=== PATIENT | male | born 1980 | race Caucasian/White ===

== ENCOUNTER 2023-09-28 09:34 | Inpatient (IN) | payer OTHER ==
[~2023-09-28] VITALS: Ht 182.9 cm; Wt 151.0 kg
[2023-09-28 10:44] LABS: BASOPHILS ABSOLUTE AUTO 0.05 K/mm3 (0.00-0.23); BASOPHILS PERCENT AUTO 1 % (0-2); EOSINOPHILS PERCENT AUTO 2 % (0-6); Hematocrit 44.3 % (37.0-53.0); IMMATURE GRAN ABSOLUTE AUTO 0.03 K/mm3 (0.00-0.10); IMMATURE GRAN PERCENT AUTO 0 % (0-1); LYMPHOCYTES ABSOLUTE AUTO 1.69 K/mm3 (0.84-5.20); LYMPHOCYTES PERCENT AUTO 19 % (21-46); MONOCYTES ABSOLUTE AUTO 0.57 K/mm3 (0.16-1.47); MONOCYTES PERCENT AUTO 6 % (4-13); Mean Corpuscular HGB Conc 33.9 g/dL (31.5-36.5); Mean Corpuscular Volume 95 fL (80-100); Mean Platelet Volume 8.9 fL (9.1-12.4); NEUTROPHILS ABSOLUTE AUTO 6.31 K/mm3 (1.96-9.15); NEUTROPHILS PERCENT AUTO 71 % (41-73); Platelet Count 274 K/mm3 (150-400); RDW Coefficient Variation 12.7 % (11.7-14.2); RDW Standard Deviation 43.5 fL (35.1-46.3); Red Blood Cell Count 4.69 M/mm3 (4.30-5.90); White Blood Cell Count 8.85 K/mm3 (4.00-11.30)
[2023-09-28 11:13] LABS: Albumin, Blood 3.4 g/dL (3.4-5.0); Bilirubin, Total 0.5 mg/dL (0.1-1.0); Bun/Creatinine Ratio 14.6 (12.0-20.0); Calcium, Blood 8.2 mg/dL (8.5-10.1); Creatinine, Blood 0.62 mg/dL (0.60-1.20); Globulin, Blood 3.5 g/dL (2.2-4.0); Potassium, Blood 4.2 mmol/L (3.5-5.5); Total Protein, Blood 6.9 g/dL (6.4-8.2)
[2023-09-28 15:42] LABS: Hematocrit 40.6 % (37.0-53.0); Hemoglobin 13.7 g/dL (13.5-17.5)
[2023-09-28 16:38] VITALS: BP 155/106
--- NOTE | 2023-09-28 19:16 | NUR ---
SHIFT SUMMARY: PT ADMITTED TO ROOM 325, CAME UP BY WHEELCHAIR AND IS STEADY ON FEET, IND IN ROOM, PLEASANT AND COOPERATIVE. PT HAD EMILIE RED STOOL 200 CC AFTER ARRIVING. PT TOLERATING CLEAR LIQUID DIET. REPORTED DISCOMFORT TO ABD MID STOMACH BILAT QUADS. PT EDUCATED ON FALL PRECAUTIONS, WHAT TO EXPECT WITH PROCEDURE. PT VU.
[2023-09-28 19:31] VITALS: BP 157/93
--- NOTE | 2023-09-29 03:52 | NUR ---
SHIFT SUMMARY PATIENT IS ALERT AND ORIENTED. PATIENT HAS BEEN IND. PATIENT HAS BEEN HAVING SEVERAL BLOODY BOWEL MOVEMENTS THIS SHIFT. PATIENT HAS BEEN ADMITTED FOR SAME REASON. PATIENT H&H STABLE. PATIENT IS SCHEDULED FOR A COLONSCOPY LATER TODAY. PATIENT HAS BEEN NPO SINCE MIDNIGHT. PATIENT HAS NOT COMPLAINED OF PAIN, NAUSEA, SOB OR VOMITTING THIS SHIFT. VITAL SIGNS REVIEWED. BED IN LOCKED AND LOWEST POSITION. CALL LIGHT IN PLACE WILL MONITOR UNTIL SHIFT CHANGE.
[2023-09-29 04:07] VITALS: BP 139/76
[2023-09-29 04:24] LABS: BASOPHILS ABSOLUTE AUTO 0.07 K/mm3 (0.00-0.23); BASOPHILS PERCENT AUTO 1 % (0-2); EOSINOPHILS PERCENT AUTO 3 % (0-6); Hematocrit 34.4 % (37.0-53.0); Hemoglobin 11.6 g/dL (13.5-17.5); IMMATURE GRAN ABSOLUTE AUTO 0.07 K/mm3 (0.00-0.10); IMMATURE GRAN PERCENT AUTO 1 % (0-1); LYMPHOCYTES ABSOLUTE AUTO 2.48 K/mm3 (0.84-5.20); LYMPHOCYTES PERCENT AUTO 28 % (21-46); MONOCYTES ABSOLUTE AUTO 0.63 K/mm3 (0.16-1.47); MONOCYTES PERCENT AUTO 7 % (4-13); Mean Corpuscular HGB Conc 33.7 g/dL (31.5-36.5); Mean Corpuscular Volume 95 fL (80-100); Mean Platelet Volume 9.1 fL (9.1-12.4); NEUTROPHILS PERCENT AUTO 60 % (41-73); Platelet Count 292 K/mm3 (150-400); RDW Coefficient Variation 12.6 % (11.7-14.2); RDW Standard Deviation 43.8 fL (35.1-46.3); Red Blood Cell Count 3.63 M/mm3 (4.30-5.90); White Blood Cell Count 8.95 K/mm3 (4.00-11.30)
[2023-09-29 04:38] LABS: Prothrombin Time Results 10.5 Sec (9.7-11.5)
[2023-09-29 04:41] LABS: Albumin, Blood 2.9 g/dL (3.4-5.0); Bilirubin, Total 0.8 mg/dL (0.1-1.0); Bun/Creatinine Ratio 13.2 (12.0-20.0); Calcium, Blood 7.8 mg/dL (8.5-10.1); Creatinine, Blood 0.68 mg/dL (0.60-1.20); Potassium, Blood 3.9 mmol/L (3.5-5.5); Total Protein, Blood 5.9 g/dL (6.4-8.2)
[2023-09-29 08:02] VITALS: BP 138/75
[2023-09-29 12:22] LABS: Hematocrit 29.2 % (37.0-53.0)
[2023-09-29 15:05] VITALS: BP 131/77
--- NOTE | 2023-09-29 15:17 | NUR ---
PT FINISHED GOLYTELY AT 2 PM AND WAS MADE NPO. PT CONTINUES TO HAVE RED BLOODY STOOLS MIXED WITH SMALL PIECES OF STOOL.
--- NOTE | 2023-09-29 16:09 | NUR ---
SHIFT SUMMARY PATIENT DENIES PAIN AND SHORTNESS OF BREATH. PATIENT MEDICATED FOR NAUSEA X1. PATIENT IS IND IN THE ROOM. PATIENT AT BEDSIDE THROUGHOUT SHIFT. PATIENT HAS BEEN CLEAR LIQUIDS WHILE DRINKING BOWEL PREP. FINISHED PREP AT 1400. PATIENT NPO SINCE 1400. PLAN FOR COLONOSCOPY LATER THIS EVENING. PATIENT PLEASANT AND COOPERATIVE WITH CARE. PATIENT CALLS APPROPRIATELY.
--- NOTE | 2023-09-29 18:11 | NUR ---
UPDATE PATIENT TAKEN FOR PROCEDURE AT 1810. [facility]IENT IN [facility], [facility] SINCE 1400. PATIENT WENT WITH PATIENT. PATIENT ASKED THAT WE CALL HER WHEN PATIENT IS BACK IN ROOM FROM PROCEDURE.
[2023-09-29 18:25] VITALS: BP 169/98
--- NOTE | 2023-09-29 19:15 | NUR ---
09/29/231914 Love Kelley WITH DR. CASTELLANOS; SEE ANESTHESIA RECORDS.
--- NOTE | 2023-09-30 01:05 | NUR ---
REPORT RECEIVED, PT DOWN STAIRS HAVING COLONSCOPY DONE. 830 PT ARRIVED A/O VSS, OUT COME OF PROCEDURE IS PT POSSIBLE CANCER DIAGNOSIS, MD IN TO SPEAK WITH PT AND , NO C/O PAIN NO DISTRESS.
[2023-09-30 04:39] VITALS: BP 177/96
[2023-09-30 05:29] LABS: BASOPHILS ABSOLUTE AUTO 0.05 K/mm3 (0.00-0.23); BASOPHILS PERCENT AUTO 1 % (0-2); EOSINOPHILS ABSOLUTE AUTO 0.19 K/mm3 (0.00-0.68); EOSINOPHILS PERCENT AUTO 2 % (0-6); Hematocrit 22.9 % (37.0-53.0); Hemoglobin 7.7 g/dL (13.5-17.5); IMMATURE GRAN ABSOLUTE AUTO 0.07 K/mm3 (0.00-0.10); IMMATURE GRAN PERCENT AUTO 1 % (0-1); LYMPHOCYTES ABSOLUTE AUTO 1.71 K/mm3 (0.84-5.20); LYMPHOCYTES PERCENT AUTO 17 % (21-46); MONOCYTES PERCENT AUTO 7 % (4-13); Mean Corpuscular HGB 32.2 pg (26.0-34.0); Mean Corpuscular HGB Conc 33.6 g/dL (31.5-36.5); Mean Corpuscular Volume 96 fL (80-100); Mean Platelet Volume 9.3 fL (9.1-12.4); NEUTROPHILS ABSOLUTE AUTO 7.43 K/mm3 (1.96-9.15); NEUTROPHILS PERCENT AUTO 73 % (41-73); Platelet Count 226 K/mm3 (150-400); RDW Coefficient Variation 12.7 % (11.7-14.2); RDW Standard Deviation 44.2 fL (35.1-46.3); Red Blood Cell Count 2.39 M/mm3 (4.30-5.90); White Blood Cell Count 10.15 K/mm3 (4.00-11.30)
[2023-09-30 07:56] VITALS: BP 150/80
[2023-09-30 13:10] LABS: Hematocrit 25.3 % (37.0-53.0); Hemoglobin 8.4 g/dL (13.5-17.5)
--- NOTE | 2023-09-30 13:51 | NUR ---
PT A&OX4 WITH VSS. NO COMPLAINTS OF NAUSEA, DIZZINESS, SOB, CHEST PAIN, OR FEELING LIGHT HEADED. PT AND FAMILY REQUESTS COPY OF CT EXAM. PRINTED CT AND DELIVERED TO PT.
[2023-09-30 15:23] VITALS: BP 150/92
--- NOTE | 2023-09-30 17:43 | NUR ---
SHIFT SUMMARY PT A&OX4 AND ANSWERS QUESTIONS APPROPRIATELY. PT VSS. PT INDEPENDENT IN ROOM. PT USES CPAP AT NIGHT. PT AWAITING RESULTS AND CONSULT WITH SURGEON TO DETERMINE DISCHARGE PLANS AND WHETHER THEY WILL PERFORM REQUIRED PROCEDURE OUTPATIENT OR DURING PT HOSPITAL STAY. NO ACUTE EVENTS DURING SHIFT. PT CALL LIGHT WITHIN REACH.
[2023-09-30 19:29] VITALS: BP 167/82
[2023-10-01 04:02] VITALS: BP 145/74
--- NOTE | 2023-10-01 05:43 | NUR ---
SHIFT SUMMARY. NO ACUTE CHANGES. PATIENT IS A/0 X4, INDEPENDENT IN ROOM AND CALLS APPROPRIATELY. PATIENT SLEPT WELL T/O NIGHT WITH RESPIRATIONS EQUAL AND UNLABORED. PER REPORT PATIENT IS WAITING TO SEE PATHOLOGY FOR A HEMACOLECTOMY POSSIBLY 10/01/23, IF NO PATHOLOGY IN TODAY POSSIBILITY OF PATIENT D/C FOR PROCEDURE TO TAKE PLACE OUTPATIENT. PATIENT IS NPO AT 0400 FOR POSSIBLE PROCEDURE. BED IS LOCKED IN THE LOWEST POSITION WITH CALL LIGHT IN REACH.
[2023-10-01 07:04] LABS: BASOPHILS ABSOLUTE AUTO 0.04 K/mm3 (0.00-0.23); BASOPHILS PERCENT AUTO 1 % (0-2); EOSINOPHILS ABSOLUTE AUTO 0.25 K/mm3 (0.00-0.68); EOSINOPHILS PERCENT AUTO 3 % (0-6); Hematocrit 21.3 % (37.0-53.0); Hemoglobin 7.2 g/dL (13.5-17.5); IMMATURE GRAN ABSOLUTE AUTO 0.05 K/mm3 (0.00-0.10); IMMATURE GRAN PERCENT AUTO 1 % (0-1); LYMPHOCYTES ABSOLUTE AUTO 1.73 K/mm3 (0.84-5.20); LYMPHOCYTES PERCENT AUTO 24 % (21-46); MONOCYTES ABSOLUTE AUTO 0.53 K/mm3 (0.16-1.47); MONOCYTES PERCENT AUTO 7 % (4-13); Mean Corpuscular HGB 32.3 pg (26.0-34.0); Mean Corpuscular HGB Conc 33.8 g/dL (31.5-36.5); Mean Corpuscular Volume 96 fL (80-100); Mean Platelet Volume 9.4 fL (9.1-12.4); NEUTROPHILS ABSOLUTE AUTO 4.68 K/mm3 (1.96-9.15); NEUTROPHILS PERCENT AUTO 64 % (41-73); Platelet Count 230 K/mm3 (150-400); RDW Coefficient Variation 12.9 % (11.7-14.2); RDW Standard Deviation 44.3 fL (35.1-46.3); Red Blood Cell Count 2.23 M/mm3 (4.30-5.90); White Blood Cell Count 7.28 K/mm3 (4.00-11.30)
[2023-10-01 07:34] VITALS: BP 131/65
[2023-10-01 08:27] LABS: Percent Saturation 11.8 % (20.0-50.0)
--- NOTE | 2023-10-01 16:35 | NUR ---
DAYSHIFT SUMMARY Patient alert & oriented x3, cooperative with cares. Patient OOB for all meals. Worked with PT today, walked hallway. CBGS WNL, SSI administred. Continuing to diuresis. Will continue plan of care.
[2023-10-01 16:43] VITALS: BP 148/75
--- NOTE | 2023-10-01 16:50 | NUR ---
DAYSHIFT SUMMARY Patient alert & oriented X4. NPO today, awaiting f/u with general surgery. reviewed patho results, pt agreed to having surgery tomorrow. Plan to be NPO at midnight and have surgery tomorrow. IV iron adminstred. VSS. Will continue plan of care.
[2023-10-01 19:20] VITALS: BP 153/84
[2023-10-02] VITALS (25 sets, daily range): BP systolic 118–192; BP diastolic 65–110
--- NOTE | 2023-10-02 04:57 | NUR ---
NOC SHIFT SUMMARY: PT. INDEPENDENT. SURGERY FOR HEMICOLECTOMY TODAY. CALL SURGERY FOR TIME. NO C/O PAIN. NPO SINCE MIDNIGHT. TOOK A SHOWER LAST NIGHT. BED IN LOW POSITION. CALL LIGHT WITHIN REACH.
[2023-10-02 06:14] LABS: BASOPHILS ABSOLUTE AUTO 0.05 K/mm3 (0.00-0.23); BASOPHILS PERCENT AUTO 1 % (0-2); EOSINOPHILS ABSOLUTE AUTO 0.35 K/mm3 (0.00-0.68); EOSINOPHILS PERCENT AUTO 5 % (0-6); Hematocrit 21.8 % (37.0-53.0); Hemoglobin 7.4 g/dL (13.5-17.5); IMMATURE GRAN ABSOLUTE AUTO 0.08 K/mm3 (0.00-0.10); IMMATURE GRAN PERCENT AUTO 1 % (0-1); LYMPHOCYTES ABSOLUTE AUTO 1.76 K/mm3 (0.84-5.20); LYMPHOCYTES PERCENT AUTO 25 % (21-46); MONOCYTES ABSOLUTE AUTO 0.48 K/mm3 (0.16-1.47); MONOCYTES PERCENT AUTO 7 % (4-13); Mean Corpuscular HGB 32.9 pg (26.0-34.0); Mean Corpuscular HGB Conc 33.9 g/dL (31.5-36.5); Mean Corpuscular Volume 97 fL (80-100); NEUTROPHILS ABSOLUTE AUTO 4.28 K/mm3 (1.96-9.15); NEUTROPHILS PERCENT AUTO 61 % (41-73); NRBC ABSOLUTE 0.02 K/mm3 (0.00-0.02); NRBC Auto 0.3 /100 WBC (0.0-0.2); RDW Coefficient Variation 13.2 % (11.7-14.2); RDW Standard Deviation 45.2 fL (35.1-46.3); Red Blood Cell Count 2.25 M/mm3 (4.30-5.90)
[2023-10-02 06:26] LABS: Bun/Creatinine Ratio 11.7 (12.0-20.0); Calcium, Blood 7.8 mg/dL (8.5-10.1); Creatinine, Blood 0.77 mg/dL (0.60-1.20); Potassium, Blood 3.7 mmol/L (3.5-5.5)
[2023-10-02 06:35] LABS: Mean Platelet Volume 9.9 fL (9.1-12.4); Platelet Count 216 K/mm3 (150-400)
--- NOTE | 2023-10-02 12:28 | NUR ---
07 ASSUMED CARE OF PT; AT SHIFT REPORT, PT SLEEPING WITH CPAP ON. 729 PT INFORMED OF SX BEING MOVED UP, INSTRUCTED TO REMOVE CLOTHING AND PLACE GOWN ON. PT CONTINUED TO REMAIN ON CPAP. 0745 SX STAFF HERE TO TAKE PT DOWN. BELONGING'S TAKEN DOWN TO RM 226 PER JUVE TEST ENGINEERING MANAGER. [place] RING LOCKED IN [place] DRAWER FOR RM 226.
--- NOTE | 2023-10-02 15:48 | NUR ---
PT ARRIVED TO RM 226 FROM PACU. TRANSFERRED PT FROM [facility] TO BED. PT A&OX4. REQUESTED WATER. REPORTS PAIN TOLERABLE AT THIS TIME. DENIES N/V OR SOB. LAP INCISIONS X4 TO ABD CDI, SECURED WITH TISS ADHESIVE. CALL LIGHT IN REACH. FAMILY BEDSIDE.
[2023-10-02 16:48] LABS: Hematocrit 27.5 % (37.0-53.0); Hemoglobin 9.1 g/dL (13.5-17.5)
--- NOTE | 2023-10-02 17:11 | NUR ---
SUMMARY PT POD 0 FOR LAP HEMICOLECTOMY. LAP INCISIONS X4 TO ABDOMEN CDI, WITH TISSUE ADHESIVE. VSS. DENIES NAUSEA. MEDICATED PER ORDERS FOR ABDOMINAL PAIN. CALL LIGHT IN REACH.
[2023-10-03 04:37] VITALS: BP 150/83
[2023-10-03 05:31] LABS: BASOPHILS ABSOLUTE AUTO 0.01 K/mm3 (0.00-0.23); BASOPHILS PERCENT AUTO 0 % (0-2); EOSINOPHILS ABSOLUTE AUTO 0.02 K/mm3 (0.00-0.68); EOSINOPHILS PERCENT AUTO 0 % (0-6); Hematocrit 22.6 % (37.0-53.0); Hemoglobin 7.6 g/dL (13.5-17.5); IMMATURE GRAN ABSOLUTE AUTO 0.09 K/mm3 (0.00-0.10); IMMATURE GRAN PERCENT AUTO 1 % (0-1); LYMPHOCYTES ABSOLUTE AUTO 1.64 K/mm3 (0.84-5.20); LYMPHOCYTES PERCENT AUTO 13 % (21-46); MONOCYTES PERCENT AUTO 6 % (4-13); Mean Corpuscular HGB 31.9 pg (26.0-34.0); Mean Corpuscular HGB Conc 33.6 g/dL (31.5-36.5); Mean Corpuscular Volume 95 fL (80-100); Mean Platelet Volume 9.3 fL (9.1-12.4); NEUTROPHILS ABSOLUTE AUTO 10.17 K/mm3 (1.96-9.15); NEUTROPHILS PERCENT AUTO 80 % (41-73); Platelet Count 329 K/mm3 (150-400); RDW Coefficient Variation 13.8 % (11.7-14.2); RDW Standard Deviation 46.5 fL (35.1-46.3); Red Blood Cell Count 2.38 M/mm3 (4.30-5.90); White Blood Cell Count 12.73 K/mm3 (4.00-11.30)
--- NOTE | 2023-10-03 05:33 | NUR ---
SUMMARY PT UP TO VOID MULTIPLE TIMES. PT IS TOLERATING PO FLUIDS. PT PAIN MANAGED WELL. PT HAS BEEN SLEEPING WITHOUT ISSUE. PT HAS BEEN USING CPAP. PT REPORTS PASSING GAS. NO NEW ISSUES NOTED. PT SLEEPING IN NO DISTRESS. CALL LIGHT IN REACH.
[2023-10-03 05:54] LABS: Bun/Creatinine Ratio 10.1 (12.0-20.0); Calcium, Blood 7.6 mg/dL (8.5-10.1); Creatinine, Blood 0.69 mg/dL (0.60-1.20); Potassium, Blood 3.5 mmol/L (3.5-5.5)
[2023-10-03 07:18] VITALS: BP 143/82
[2023-10-03] MEDS ORDERED: Acetaminophen650 M1 PO (12:30)
[2023-10-03] MEDS ORDERED: OXYC5 PO (12:30)
[2023-10-03] MEDS ORDERED: SENN187 PO (12:31)
--- NOTE | 2023-10-03 15:39 | NUR ---
DISCHARGE SUMMARY PATIENT A/O X4- POD1 [place] LAP HEMICOLECTOMY W/ 4 LAP SITES, DERMABOND INTACT, NO DRAINAGE. PATIENT PASSING FLATUS AND IS TOLERATING PO INTAKE W/ NO REPORTS OF NAUSEA OR VOMITING. PAIN MANAGED W/ PO NARCOTICS. VOIDING WELL. IV'S REMOVED W/ CATH TIP INTACT ON BOTH. WRITTEN AND VERBAL DISCHARGE INSTRUCTIONS GIVEN. PATIENT AGREEABLE TO DISCHARGE. [employer] GATHERED AND PATIENT WALKED OUT TO PERSONAL FAMILY VEHICLE.
== END 2023-10-03 14:50 | disposition home or self-care (01) | DRG 330 ==
LOC: ER 09:34 → MEDS 09:35 → SURS 09-30 14:58 → MEDS 09-30 14:58 → SURS 10-02 13:27
PROVIDERS: Family Medicine; Internal Medicine Gastroenterology; Physician Assistant; Surgery; ADMIT Internal Medicine
PROC: 0DBH8ZZ Excision of Cecum, Via Natural or Artificial Opening Endoscopic (ICD-10-PCS; principal; 2023-09-29 14:30)
PROC: 0DBL8ZZ Excision of Transverse Colon, Via Natural or Artificial Opening Endoscopic (ICD-10-PCS; 2023-09-29 14:30)
PROC: 0DBN8ZZ Excision of Sigmoid Colon, Via Natural or Artificial Opening Endoscopic (ICD-10-PCS; 2023-09-29 14:30)
PROC: 0DBP8ZZ Excision of Rectum, Via Natural or Artificial Opening Endoscopic (ICD-10-PCS; 2023-09-29 14:30)
PROC: 5A09357 Assistance with Respiratory Ventilation, Less than 24 Consecutive Hours, Continuous Positive Airway Pressure (ICD-10-PCS; 2023-09-30)
PROC: 30233N1 Transfusion of Nonautologous Red Blood Cells into Peripheral Vein, Percutaneous Approach (ICD-10-PCS; 2023-09-30)
PROC: 0DTF4ZZ Resection of Right Large Intestine, Percutaneous Endoscopic Approach (ICD-10-PCS; 2023-10-02)
PROC: 8E0W4CZ Robotic Assisted Procedure of Trunk Region, Percutaneous Endoscopic Approach (ICD-10-PCS; 2023-10-02)
DX: C18.9 Malignant neoplasm of colon, unspecified (principal); D62 Acute posthemorrhagic anemia; K92.1 Melena; F10.90 Alcohol use, unspecified, uncomplicated; G47.33 Obstructive sleep apnea (adult) (pediatric); F17.210 Nicotine dependence, cigarettes, uncomplicated; K63.5 Polyp of colon; K64.4 Residual hemorrhoidal skin tags; I10 Essential (primary) hypertension; F12.90 Cannabis use, unspecified, uncomplicated; Z99.89 Dependence on other enabling machines and devices; Z98.890 Other specified postprocedural states
CPT/HCPCS: 36415; 71260; 74177; 80048; 80053; 82378; 82607; 82728; 82746; 83540; 83550; 85014; 85018; 85025; 85610; 86850; 86900; 86901; 86923; 88307; 94660; 94760; 94762; 96374; 96375; 96376; 99285-25; A9270; C9113; G0378; J0330; J0360; J0694; J1100; J1170; J1650; J2250; J2405; J2704; J2710; J2916; J3010; J7120; P9016; Q9967

== ENCOUNTER → 2023-10-08 | Outpatient (CLI) | payer OTHER ==
[~2023-10-08] MED LIST: Acetaminophen650 M1 PO; OXYC5 PO; SENN187 PO
== END ==
LOC: LAB 17:31 → LAB SHORT 17:31
DX: T81.49XA Infection following a procedure, other surgical site, initial encounter (principal)
CPT/HCPCS: 87070; 87077; 87186; 87205

== ENCOUNTER 2023-11-05 08:39 | Inpatient (IN) | payer OTHER ==
[~2023-11-05] VITALS: Ht 182.9 cm; Wt 142.0 kg
[2023-11-05 10:05] LABS: Hematocrit 32.7 % (37.0-53.0); Hemoglobin 10.4 g/dL (13.5-17.5); Mean Corpuscular HGB 26.4 pg (26.0-34.0); Mean Corpuscular HGB Conc 31.8 g/dL (31.5-36.5); Mean Corpuscular Volume 83 fL (80-100); Platelet Count 530 K/mm3 (150-400); RDW Standard Deviation 51.7 fL (35.1-46.3); Red Blood Cell Count 3.94 M/mm3 (4.30-5.90); White Blood Cell Count 15.82 K/mm3 (4.00-11.30)
[2023-11-05 10:22] LABS: Albumin, Blood 2.3 g/dL (3.4-5.0); Albumin/Globulin Ratio 0.5 (0.8-1.8); Bilirubin, Total 0.5 mg/dL (0.1-1.0); Calcium, Blood 8.4 mg/dL (8.5-10.1); Creatinine, Blood 0.75 mg/dL (0.60-1.20); Potassium, Blood 3.2 mmol/L (3.5-5.5); Total Protein, Blood 7.3 g/dL (6.4-8.2)
[2023-11-05 10:45] LABS: BAND PERCENT MAN 5 % (0-8); BASOPHILS PERCENT MAN 0 % (0-2); EOSINOPHILS PERCENT MAN 0 % (0-6); LYMPHOCYTES ABSOLUTE MAN 0.63 K/mm3 (0.84-5.20); LYMPHOCYTES PERCENT MAN 4 % (21-46); MONOCYTES PERCENT MAN 7 % (4-13); NEUTROPHILS ABSOLUTE MAN 14.07 K/mm3 (1.96-9.15); SEG NEUTROPHILS PERCENT MAN 84 % (41-73); TOTAL CELLS COUNTED 100
[2023-11-05 13:39] LABS: Source, Urine Clean Catch
[2023-11-05 13:47] LABS: Bilirubin, Urine Neg (Neg); Blood, Urine 1+ (Neg); Color, Urine Yellow (P-Yellow); Glucose Qualitative, Urine Neg (Neg); Ketones, Urine Neg (Neg); Leukocyte Esterase, Urine Neg (Neg); Nitrite, Urine Neg (Neg); Protein, Urine 2+ (Neg); Urobilinogen, Urine NORM (Normal)
[2023-11-05 14:21] LABS: International Normalized Ratio 1.04; Prothrombin Time Results 10.9 Sec (9.7-11.5)
[2023-11-05 14:50] LABS: Appearance, Urine Hazy (Clear); Uric Acid Crystals Many /hpf
[2023-11-05 14:51] VITALS: BP 141/90
[2023-11-05 14:52] LABS: Amorphous Light (0-Heavy); Bacteria Mod /hpf; Red Blood Cells, Urine 0-2 /hpf (0-2); Squamous Epithelial Cells Rare /hpf (Few); White Blood Cells, Urine 0-2 /hpf (0-5)
--- NOTE | 2023-11-05 15:02 | NUR ---
ADMIT: REPORT RECEIVED FROM ED RN. PT TO UNIT AT 1450. A/O, VSS. HX COMPLETE. PT TO CT AT 1500 VIA WHEELCHAIR AND IMAGING TRANSPORT.
--- NOTE | 2023-11-05 18:22 | NUR ---
DR. YOUSIF IN ROOM A THIS TIME
--- NOTE | 2023-11-05 19:00 | NUR ---
SUMMARY: NO CHANGE SINCE ADMIT. A/O, VSS. LLQ URESIL DRAIN HAS HAD 400ML LIQUID BROWN OUTPUT, DRAIN WNL COMPRESSED. PT REPORTS PAIN BETTER AFTER DRAIN PLACED. PT INDEP IN ROOM, VOIDING. ANTIBIOTICS AND FLUIDS INFUSING. NO ACUTE SAFETY CONCERNS.
[2023-11-05 20:16] VITALS: BP 134/80
[2023-11-06 02:22] LABS: Adenovirus F 40/41 Not Detected (NOT DETECT); Astrovirus Not Detected (NOT DETECT); Campylobacter Sp Not Detected (NOT DETECT); Cryptosporidium Not Detected (NOT DETECT); Cyclospora Cayetanensis Not Detected (NOT DETECT); E. Coli O157 Not Detected (NOT DETECT); Entamoeba Histolytica Not Detected (NOT DETECT); Enteroaggregative E. coli-EAEC Not Detected (NOT DETECT); Enteropathogenic E. coli-EPEC Not Detected (NOT DETECT); Enterotoxigenic E. coli-ETEC Not Detected (NOT DETECT); Giardia Lamblia Not Detected (NOT DETECT); Norovirus GI/GII Not Detected (NOT DETECT); Plesiomonas Shigelloides Not Detected (NOT DETECT); Rotavirus A Not Detected (NOT DETECT); Salmonella Sp Not Detected (NOT DETECT); Sapovirus Not Detected (NOT DETECT); Shiga Toxin-prod E. coli-STEC Not Detected (NOT DETECT); Shigella/Enteroin E. coli-EIEC Not Detected (NOT DETECT); Vibrio Cholerae Not Detected (NOT DETECT); Vibrio Sp Not Detected (NOT DETECT); Yersinia Enterocolitica Not Detected (NOT DETECT)
[2023-11-06 03:16] VITALS: BP 141/84
[2023-11-06 05:25] LABS: Hematocrit 31.1 % (37.0-53.0); Hemoglobin 9.6 g/dL (13.5-17.5); Mean Corpuscular HGB 25.9 pg (26.0-34.0); Mean Corpuscular HGB Conc 30.9 g/dL (31.5-36.5); Mean Corpuscular Volume 84 fL (80-100); Mean Platelet Volume 9.1 fL (9.1-12.4); Platelet Count 515 K/mm3 (150-400); RDW Coefficient Variation 17.2 % (11.7-14.2); RDW Standard Deviation 52.7 fL (35.1-46.3); Red Blood Cell Count 3.71 M/mm3 (4.30-5.90); White Blood Cell Count 10.29 K/mm3 (4.00-11.30)
[2023-11-06 05:48] LABS: BAND PERCENT MAN 14 % (0-8); BASOPHILS PERCENT MAN 0 % (0-2); EOSINOPHILS PERCENT MAN 1 % (0-6); LYMPHOCYTES ABSOLUTE MAN 0.92 K/mm3 (0.84-5.20); LYMPHOCYTES PERCENT MAN 9 % (21-46); MONOCYTES ABSOLUTE MAN 1.13 K/mm3 (0.16-1.47); MONOCYTES PERCENT MAN 11 % (4-13); NEUTROPHILS ABSOLUTE MAN 8.12 K/mm3 (1.96-9.15); SEG NEUTROPHILS PERCENT MAN 65 % (41-73); TOTAL CELLS COUNTED 100
[2023-11-06 05:58] LABS: Albumin/Globulin Ratio 0.4 (0.8-1.8); Bilirubin, Total 0.4 mg/dL (0.1-1.0); Bun/Creatinine Ratio 11.2 (12.0-20.0); Calcium, Blood 7.7 mg/dL (8.5-10.1); Creatinine, Blood 0.72 mg/dL (0.60-1.20); Globulin, Blood 4.5 g/dL (2.2-4.0); Potassium, Blood 3.5 mmol/L (3.5-5.5); Total Protein, Blood 6.5 g/dL (6.4-8.2)
--- NOTE | 2023-11-06 06:50 | NUR ---
SHIFT SUMMARY PT HAS BEEN ADMITTED FOR ABDOMINAL/PELVIC ABSCESSES FOR WHICH A CT GUIDED URISEL DRAIN WAS PLACED ON 11/05/23. PT RESTED FOR MOST OF THE SHIFT, HAVING HIS HOME CPAP MACHINE BEING SET-UP BY RT. PT IS INDEPENDENT IN THE ROOM AND GOT UP THROUGHOUT THE SHIFT TO USE THE BATHROOM. PT'S PAIN WAS WELL CONTROLLED DURING THE NIGHT WITH NO ACUTE EVENTS OCCURRING. BED IS IN LOWEST POSITION, CALL LIGHT IS WITHIN REACH.
[2023-11-06 07:22] VITALS: BP 144/82
[2023-11-06 14:52] VITALS: BP 141/81
--- NOTE | 2023-11-06 18:55 | NUR ---
SHIFT SUMMARY POD1 RLQ DRAIN PLACEMENT, A/OX4, VSS, TOLERATING PO, INDEPENDENT IN THE ROOM, PAIN MANAGED PER EMAR THOUGH THE PATIENT REPORTS 0.5MG DILAUDED MAKES HIM FEEL LIGHT HEADED AND "MIGHT BE A BIT TOO MUCH" FOR HIM. IV ABX INFUSING ORDERED. NO ACUTE EVENTS THIS SHIFT, CALL LIGHT IN REACH.
[2023-11-06 19:11] VITALS: BP 145/83
[2023-11-07 04:57] VITALS: BP 145/85
[2023-11-07 04:58] LABS: BASOPHILS ABSOLUTE AUTO 0.03 K/mm3 (0.00-0.23); BASOPHILS PERCENT AUTO 0 % (0-2); EOSINOPHILS ABSOLUTE AUTO 0.18 K/mm3 (0.00-0.68); EOSINOPHILS PERCENT AUTO 1 % (0-6); Hematocrit 29.2 % (37.0-53.0); Hemoglobin 9.5 g/dL (13.5-17.5); IMMATURE GRAN ABSOLUTE AUTO 0.25 K/mm3 (0.00-0.10); IMMATURE GRAN PERCENT AUTO 2 % (0-1); LYMPHOCYTES PERCENT AUTO 7 % (21-46); MONOCYTES ABSOLUTE AUTO 0.91 K/mm3 (0.16-1.47); MONOCYTES PERCENT AUTO 6 % (4-13); Mean Corpuscular HGB 26.8 pg (26.0-34.0); Mean Corpuscular HGB Conc 32.5 g/dL (31.5-36.5); Mean Corpuscular Volume 83 fL (80-100); Mean Platelet Volume 9.2 fL (9.1-12.4); NEUTROPHILS ABSOLUTE AUTO 13.36 K/mm3 (1.96-9.15); NEUTROPHILS PERCENT AUTO 85 % (41-73); Platelet Count 509 K/mm3 (150-400); RDW Coefficient Variation 17.4 % (11.7-14.2); RDW Standard Deviation 52.4 fL (35.1-46.3); Red Blood Cell Count 3.54 M/mm3 (4.30-5.90); White Blood Cell Count 15.83 K/mm3 (4.00-11.30)
[2023-11-07 06:10] LABS: Alanine Aminotransfer (ALT/SGP 45 U/L (12-78); Albumin/Globulin Ratio 0.5 (0.8-1.8); Alk Phos 97 U/L (50-136); Anion Gap 7 mmol/L (6-16); Aspartate Aminotrans (AST/SGOT 35 U/L (12-37); Bilirubin, Total 0.3 mg/dL (0.1-1.0); Blood Urea Nitrogen 7 mg/dL (8-24); Bun/Creatinine Ratio 7.6 (12.0-20.0); CO2, Blood 24 mmol/L (21-32); Calcium, Blood 7.7 mg/dL (8.5-10.1); Chloride, Blood 107 mmol/L (98-108); Creatinine, Blood 0.92 mg/dL (0.60-1.20); Globulin, Blood 4.3 g/dL (2.2-4.0); Glomerular Filtration Rate 105 (60-); Glucose, Blood 107 mg/dL (70-99); Phosphorus, Blood 2.7 mg/dL (2.5-4.9); Potassium, Blood 3.3 mmol/L (3.5-5.5); Sodium, Blood 138 mmol/L (136-145); Total Protein, Blood 6.3 g/dL (6.4-8.2); Vancomycin, Trough 16.4 ug/mL (5.0-10.0)
[2023-11-07 07:28] VITALS: BP 139/77
[2023-11-07 14:41] VITALS: BP 158/84
--- NOTE | 2023-11-07 19:12 | NUR ---
SHIFT SUMMARY POD2 CT GUIDED DRAIN PLACEMENT, A/OX4, VSS, TOLERATING PO, PAIN MANAGED PER EMAR, INDEPENDENT IN THE ROOM, DRAIN DRESSING CHANGED OUT AFTER SMALL AMT OF DRAINAGE WAS NOTED ON HIS SHORTS. NO ACUTE EVENTS THIS SHIFT, CALL LIGHT IN REACH.
[2023-11-07 21:29] VITALS: BP 118/55
[2023-11-08 04:58] VITALS: BP 112/77
[2023-11-08 06:54] LABS: BASOPHILS ABSOLUTE AUTO 0.04 K/mm3 (0.00-0.23); BASOPHILS PERCENT AUTO 0 % (0-2); Hematocrit 26.9 % (37.0-53.0); Hemoglobin 8.4 g/dL (13.5-17.5); Mean Corpuscular HGB 26.6 pg (26.0-34.0); Mean Corpuscular HGB Conc 31.2 g/dL (31.5-36.5); Mean Corpuscular Volume 85 fL (80-100); Mean Platelet Volume 9.2 fL (9.1-12.4); Platelet Count 498 K/mm3 (150-400); RDW Coefficient Variation 17.3 % (11.7-14.2); RDW Standard Deviation 54.5 fL (35.1-46.3); Red Blood Cell Count 3.16 M/mm3 (4.30-5.90); White Blood Cell Count 14.53 K/mm3 (4.00-11.30)
[2023-11-08 07:04] LABS: EOSINOPHILS ABSOLUTE AUTO 0.24 K/mm3 (0.00-0.68); EOSINOPHILS PERCENT AUTO 2 % (0-6); IMMATURE GRAN ABSOLUTE AUTO 0.31 K/mm3 (0.00-0.10); IMMATURE GRAN PERCENT AUTO 2 % (0-1); LYMPHOCYTES ABSOLUTE AUTO 1.39 K/mm3 (0.84-5.20); LYMPHOCYTES PERCENT AUTO 10 % (21-46); MONOCYTES ABSOLUTE AUTO 0.59 K/mm3 (0.16-1.47); MONOCYTES PERCENT AUTO 4 % (4-13); NEUTROPHILS ABSOLUTE AUTO 11.96 K/mm3 (1.96-9.15); NEUTROPHILS PERCENT AUTO 82 % (41-73)
[2023-11-08 07:06] LABS: Albumin, Blood 1.8 g/dL (3.4-5.0); Albumin/Globulin Ratio 0.4 (0.8-1.8); Bilirubin, Total 0.2 mg/dL (0.1-1.0); Bun/Creatinine Ratio 4.6 (12.0-20.0); Calcium, Blood 7.5 mg/dL (8.5-10.1); Creatinine, Blood 1.3 mg/dL (0.60-1.20); Globulin, Blood 4.3 g/dL (2.2-4.0); Potassium, Blood 3.1 mmol/L (3.5-5.5); Total Protein, Blood 6.1 g/dL (6.4-8.2)
--- NOTE | 2023-11-08 07:51 | NUR ---
SUMMARY NO ACUTE CHANGES OVER NIGHT, VSS, ON RA, PO NORCO FOR PAIN, ABD REMAINS MODERATLY DISTENDED, TYMPANIC BS, PT REPORTS LOOSE BM'S, 100 ML'S NOTED IN URICAL, DRSG C/D/I, VOIDING WNL, AMB ENC, REPORT GIVEN TO COSME TEJEDA,
[2023-11-08 08:02] VITALS: BP 124/75
[2023-11-08 15:52] VITALS: BP 129/82
--- NOTE | 2023-11-08 16:00 | NUR ---
3 WAY STOPCOCK PLACED TO URESIL DRAIN AND FLUSHED WITH 10ML OF SALINE.
[2023-11-08 19:29] VITALS: BP 128/80
--- NOTE | 2023-11-08 19:31 | NUR ---
SHIFT SUMMARY PT'S ABD REMAINS DISTENDED. HE HAS BEEN ABLE TO PASS FLATUS AND STOOL. PT IS AMBULATING INDEPENDENTLY IN THE HALWAYS. PAIN MANAGED WITH PO NORCO. PT ALERT AND ORIENTED DURING BEDSIDE REPORT.
[2023-11-09 03:55] VITALS: BP 142/79
--- NOTE | 2023-11-09 04:31 | NUR ---
SHIFT SUMMARY NO ACUTE CHANGES THROUGH THE NIGHT, INDEPENDENT IN ROOM, VSS, ON RA, AMBULATING IN HALLS, TOLERATING PO INTAKE, PASSING FLATUS/STOOL, VOIDING WNL, MINIMAL PAIN REPORTED, PAIN MNGD W PO NORCO, 200 ML'S OF PURULENT DRAINAGE NOTED IN URICEL, DRAIN COMPRESSED, DRSG INTACT. RESTING IN BED AT THIS TIME, NO REQUESTS, CALL LIGHT IN REACH, WCTM & REPORT TO ONCOMING RN
[2023-11-09 06:24] LABS: BASOPHILS ABSOLUTE AUTO 0.05 K/mm3 (0.00-0.23); BASOPHILS PERCENT AUTO 0 % (0-2); EOSINOPHILS ABSOLUTE AUTO 0.22 K/mm3 (0.00-0.68); EOSINOPHILS PERCENT AUTO 1 % (0-6); Hematocrit 26.8 % (37.0-53.0); Hemoglobin 8.5 g/dL (13.5-17.5); Mean Corpuscular HGB 26.6 pg (26.0-34.0); Mean Corpuscular HGB Conc 31.7 g/dL (31.5-36.5); Mean Corpuscular Volume 84 fL (80-100); Mean Platelet Volume 9.1 fL (9.1-12.4); Platelet Count 528 K/mm3 (150-400); RDW Coefficient Variation 17.7 % (11.7-14.2); RDW Standard Deviation 54.9 fL (35.1-46.3); Red Blood Cell Count 3.19 M/mm3 (4.30-5.90); White Blood Cell Count 16.59 K/mm3 (4.00-11.30)
[2023-11-09 06:40] LABS: IMMATURE GRAN ABSOLUTE AUTO 0.34 K/mm3 (0.00-0.10); IMMATURE GRAN PERCENT AUTO 2 % (0-1); LYMPHOCYTES ABSOLUTE AUTO 1.34 K/mm3 (0.84-5.20); LYMPHOCYTES PERCENT AUTO 8 % (21-46); MONOCYTES ABSOLUTE AUTO 0.67 K/mm3 (0.16-1.47); MONOCYTES PERCENT AUTO 4 % (4-13); NEUTROPHILS ABSOLUTE AUTO 13.97 K/mm3 (1.96-9.15); NEUTROPHILS PERCENT AUTO 84 % (41-73)
[2023-11-09 06:46] LABS: Albumin, Blood 1.9 g/dL (3.4-5.0); Albumin/Globulin Ratio 0.4 (0.8-1.8); Bilirubin, Total 0.2 mg/dL (0.1-1.0); Bun/Creatinine Ratio 4.5 (12.0-20.0); Calcium, Blood 7.5 mg/dL (8.5-10.1); Creatinine, Blood 1.32 mg/dL (0.60-1.20); Globulin, Blood 4.3 g/dL (2.2-4.0); Magnesium, Blood 2.1 mg/dL (1.6-2.4); Potassium, Blood 3.4 mmol/L (3.5-5.5); Total Protein, Blood 6.2 g/dL (6.4-8.2)
[2023-11-09 08:11] VITALS: BP 129/77
--- NOTE | 2023-11-09 11:36 | NUR ---
URESIL DRAIN FLUSHED W/ 10CC NS DURING AM SHIFT ASSSESSMENT, PT TOLERATED WELL, PURULENT DRAINAGE NOTED IN DRAINAGE BAG.
[2023-11-09 14:46] VITALS: BP 159/91
--- NOTE | 2023-11-09 18:44 | NUR ---
SUMMARY DRAIN FLUSHED W/ 10ML NS THIS AM, TOLERATED WELL, INDEPENDENT, AMBULATES DOWN THE [place], 1 [place] FOR PAIN X3 TODAY, C/O SORE THROAT THIS EVENING, REDNESS NOTED IN THROAT, DR. RAZO NOTIFIED, NO OTHER CHANGES THIS SHIFT.
[2023-11-09 19:31] VITALS: BP 140/72
[2023-11-10 03:41] VITALS: BP 130/76
--- NOTE | 2023-11-10 04:46 | NUR ---
SHIFT SUMMARY POD 5 URESIL DRAIN PLACEMENT PT ABLE TO REST DURING THE NIGHT. PAIN MANAGED PER EMAR. PT WORE CPAP ALL NIGHT. UP TO THE BATHROOM MULTIPLE TIME DURING THE NIGHT. URESIL DRAIN PUTTING OUT PURULENT DRAINAGE. DRAIN FLUSH WITH 10ML NS AT BEGINING OF SHIFT. NO OTHER COCERNS AT THIS TIME. CALL LIGHT WITHIN REACH
[2023-11-10 07:12] VITALS: BP 170/84
[2023-11-10 10:21] LABS: Hemoglobin 8.8 g/dL (13.5-17.5); Mean Corpuscular HGB 26.2 pg (26.0-34.0); Mean Corpuscular HGB Conc 31.4 g/dL (31.5-36.5); Mean Corpuscular Volume 83 fL (80-100); Mean Platelet Volume 9.2 fL (9.1-12.4); Platelet Count 588 K/mm3 (150-400); RDW Coefficient Variation 17.6 % (11.7-14.2); RDW Standard Deviation 54.4 fL (35.1-46.3); Red Blood Cell Count 3.36 M/mm3 (4.30-5.90); White Blood Cell Count 14.44 K/mm3 (4.00-11.30)
[2023-11-10 11:36] LABS: BAND PERCENT MAN 3 % (0-8); BASOPHILS PERCENT MAN 0 % (0-2); EOSINOPHILS ABSOLUTE MAN 0.14 K/mm3 (0.00-0.68); EOSINOPHILS PERCENT MAN 1 % (0-6); LYMPHOCYTES ABSOLUTE MAN 1.01 K/mm3 (0.84-5.20); LYMPHOCYTES PERCENT MAN 7 % (21-46); METAMYELOCYTE ABSOLUTE MAN 0.14 K/mm3 (0.00-0.00); METAMYELOCYTE PERCENT MAN 1 % (0-0); MONOCYTES ABSOLUTE MAN 0.43 K/mm3 (0.16-1.47); MONOCYTES PERCENT MAN 3 % (4-13); SEG NEUTROPHILS PERCENT MAN 85 % (41-73); TOTAL CELLS COUNTED 100
[2023-11-10] MEDS ORDERED: Amlodipine Bes2.5 MG PO (13:49)
[2023-11-10] MEDS ORDERED: CEFD300 PO (13:50)
[2023-11-10] MEDS ORDERED: Calcium Carbon500 MG PO (13:50)
[2023-11-10] MEDS ORDERED: CEPACOL THROAT1 EAC1 MM (13:51)
[2023-11-10] MEDS ORDERED: PROBIOTIC1 EA14 PO (13:52)
[2023-11-10] MEDS ORDERED: METR500 PO (13:52)
[2023-11-10] MEDS ORDERED: Norco 5-325 Ta1 EACH PO (14:09)
--- NOTE | 2023-11-10 14:30 | NUR ---
PATIENT WAS GETTING EDUCATED ON HOW TO DO HIS URICEL DRAIN IN HIS LLQ ABD DAILY FLUSHES PER DR. REEVES ORDERS, BUT AFTER PUTTING IN 10ML OF A NS SYRINGE TO FLUSH THE URICEL DRAIN MOST OF THE NS CAME OUT AND AROUND THE TUBING AND DRIPPED DOWN PATIENTS ABD. THIS NURSE THEN CALLED DR. REEVES AND REPORTED THE FINDINGS. DR. REEVES SAID TO TRY USING 2-3 10ML NS SYRINGE FLUSHES AND THEN REPORT BACK TO HER WHAT HAPPENED. AFTER THIS NURSE TRIED FLUSHING THE URICEL DRAIN WITH 15ML OF THE NS SYRINGE FLUSHES, AGAIN MOST OF THE NS SYRINGE FLUSH CAME BACK OUT FROM THE INCISION SITE AND AGAIN DRIPPED DOWN HIS ABD. THIS NURSE THEN CALLED DR. REEVES AGAIN WITH THE UPDATE. DR. REEVES THEN SAID TO HAVE THE PATIENT NOT DO A DAILY FLUSH FOR HIS URICEL DRAIN AT HOME ANYMORE. PATIENT IS TO INSTEAD KEEP THE URICEL DRAIN IN PLACE AND TO EMPTY THE OUTPUT OF THE DRAIN AND RECORD THE COLOR OF OUTPUT AND THE AMOUNT AND HE IS TO STILL BE ABLE TO DISCHARGE HOME. THIS NURSE RELAYED THE NEWEST DISCHARGE ORDERS TO THE PATIENT. PATIENT VERBALIZED UNDERSTANDING AND HAD NO FURTHER QUESTIONS AT THIS TIME.
--- NOTE | 2023-11-10 14:43 | NUR ---
DISCHARGE NOTE: PATIENT WAS EDUCATED ON DISCHARGE INSTRUCTIONS. HE VERBALIZED UNDERSTANDING OF INSTRUCTIONS AND HAD NO FURTHER QUESTIONS AT THIS TIME. POWERGLIDE WAS TAKEN OUT AND WNL. PAIN IS MANAGED WITH PO PAIN MEDS. HARD PERSCRIPTION WAS PLACED IN DISCHARGE FOLDER. PATIENTS URICEL IN LLQ OF ABD IS INTACT WITH TEGADERM AND ACCORDIAN COMPRESSED WITH SCANT AMOUNT OF OUTPUT. HE IS TOLERATING PO INTAKE, VOIDING, AND PASSING GAS/HAVING BMS. PATIENT IS DRESSED AND HAS HIS PERSONAL ITEMS IN THE ROOM GATHERED. PATIENTS OTHER PERSCRIPTIONS WERE FAXED TO [facility]. PATIENT REFUSED TO BE WHEELCHAIRED OUT AND IS WALKING TO HIS WIFES CAR TO BE TAKEN HOME.
== END 2023-11-10 14:55 | disposition home or self-care (01) | DRG 393 ==
LOC: ER 08:39 → SURS 13:28 → ER 14:20 → SURS 14:45
PROVIDERS: Emergency Medicine; Family Medicine; Student in an Organized Health Care Education/Training Program; Surgery; ADMIT Internal Medicine
PROC: 0W9G30Z Drainage of Peritoneal Cavity with Drainage Device, Percutaneous Approach (ICD-10-PCS; principal; 2023-11-05)
PROC: 5A09357 Assistance with Respiratory Ventilation, Less than 24 Consecutive Hours, Continuous Positive Airway Pressure (ICD-10-PCS; 2023-11-05)
PROC: 3E03329 Introduction of Other Anti-infective into Peripheral Vein, Percutaneous Approach (ICD-10-PCS; 2023-11-05)
DX: K91.89 Other postprocedural complications and disorders of digestive system (principal); A40.8 Other streptococcal sepsis; A41.51 Sepsis due to Escherichia coli [E. coli]; K65.1 Peritoneal abscess; A41.59 Other Gram-negative sepsis; R65.20 Severe sepsis without septic shock; N17.9 Acute kidney failure, unspecified; Z68.41 Body mass index [BMI] 40.0-44.9, adult; G47.33 Obstructive sleep apnea (adult) (pediatric); D64.9 Anemia, unspecified; L83 Acanthosis nigricans; F17.200 Nicotine dependence, unspecified, uncomplicated; E87.6 Hypokalemia; R94.5 Abnormal results of liver function studies; R19.7 Diarrhea, unspecified; E66.01 Morbid (severe) obesity due to excess calories; Y83.8 Other surgical procedures as the cause of abnormal reaction of the patient, or of later complication, without mention of misadventure at the time of the procedure; Z90.49 Acquired absence of other specified parts of digestive tract
CPT/HCPCS: 36415; 49406; 74177; 80053; 80202; 81001; 83036; 83605; 83690; 83735; 84100; 84145; 85025; 85610; 85730; 87070; 87075; 87077; 87086; 87185; 87186; 87205; 87507; 88108; 88305; 93005; 93010; 94660; 96361; 96365-59; 96367; 96375; 96376; 99285-25; A9270; J0696; J1170; J2270; J2405; J2543; J3370; J3480; J7030; J7050; Q9967